=== PATIENT | female | born 1995 | race Hispanic/Latino ===

== ENCOUNTER 2020-02-14 11:03 | Emergency (ER) | payer MEDICAID, OTHER ==
[2020-02-14 11:38] LABS: RAPID GROUP A STREP NEGATIVE (NEGATIVE)
== END 2020-02-14 12:23 | disposition home or self-care (01) ==
LOC: EDH 11:03
DX: R50.9 Fever, unspecified (principal); R05 Cough; M79.10 Myalgia, unspecified site; J02.9 Acute pharyngitis, unspecified; Z20.828 Contact with and (suspected) exposure to other viral communicable diseases; Z88.0 Allergy status to penicillin
CPT/HCPCS: 87426; 87804 ×2; 87880; 99283; U0003